=== PATIENT | female | born 1985 ===

== ENCOUNTER 2021-03-10 05:48 | Emergency (ER) | payer SELFPAY ==
[2021-03-10 05:56] VITALS: BP 190/104
== END 2021-03-10 09:17 | disposition left against medical advice (07) ==
LOC: ED 05:48
DX: R07.89 Other chest pain (principal); R06.02 Shortness of breath; Z53.21 Procedure and treatment not carried out due to patient leaving prior to being seen by health care provider
CPT/HCPCS: 36415; 71046; 80053; 81025; 85025; 93005